=== PATIENT | female | born 1990 | race Caucasian/White ===

== ENCOUNTER 2020-11-19 16:40 | Inpatient (IN) | payer MEDICAID, SELFPAY ==
[~2020-11-19] VITALS: Ht 157.5 cm; Wt 77.1 kg
[2020-11-19] MEDS ORDERED: CARBOPROST 250 MCG/ML AMP IM PRN (18:25)
[2020-11-19] MEDS ORDERED: LACTATED RINGERS 1,000 ML IV SCH (18:25)
[2020-11-19] MEDS ORDERED: METHYLERGONOVINE 0.2 MG/ML AMP IM PRN (18:25)
[2020-11-19 19:00] LABS: BASOPHILS % (AUTO) 0.4 % (0.0-2.0); EOSINOPHILS % (AUTO) 0.1 % (0.0-4.0); HEMOGLOBIN 10.9 g/dL (12.0-16.0); LYMPHOCYTES # (AUTO) 1.3 K/uL (2.5-16.5); LYMPHOCYTES % (AUTO) 16.7 % (20.5-51.1); MEAN CORPUSCULAR HEMOGLOBIN 29 pg (27-31); MEAN CORPUSCULAR HGB CONC 33 g/dL (33-37); MEAN CORPUSCULAR VOLUME 86.6 fL (80-94); MONOCYTES # (AUTO) 0.3 K/uL (0.8-1.0); MONOCYTES % (AUTO) 3.5 % (1.7-9.3); NEUTROPHILS # (AUTO) 6.2 K/uL (1.8-7.7); NEUTROPHILS % (AUTO) 79.3 % (42.2-75.2); PLATELET COUNT (AUTO) 178 K/uL (140-450); RED BLOOD CELL COUNT(AUTO) 3.81 MIL/uL (4.20-5.40); RED CELL DISTRIBUTION WIDTH 14.9 % (11.6-13.7); WHITE BLOOD COUNT (AUTO) 7.8 K/uL (4.8-10.8)
[2020-11-19 19:31] LABS: ALBUMIN 2.7 g/dL (3.4-5.0); ANION GAP 20.7 (8-16); CREATININE 0.6 mg/dL (0.6-1.3); POTASSIUM 3.7 mmol/L (3.5-5.1); TOTAL BILIRUBIN 0.3 mg/dL (0.0-1.0)
[2020-11-19 20:00] LABS: APPEARANCE,URINE CLEAR (CLEAR); BILIRUBIN,URINE NEGATIVE (NEGATIVE); BLOOD, URINE NEGATIVE (NEGATIVE); COLOR,URINE YELLOW (YELLOW); LEUKOCYTE ESTERASE ,URINE NEGATIVE (NEGATIVE); NITRITE, URINE NEGATIVE (NEGATIVE); UGLUCOSE NEGATIVE (NEGATIVE)
[2020-11-19] MEDS ORDERED: MISOPROSTOL 25 MCG TAB VG SCH (20:10)
[2020-11-19] MEDS ORDERED: OXYTOCIN 20 UNITS in LACTATED RINGERS 1,000 ML IV SCH (20:10)
[2020-11-19] MEDS ORDERED: MORPHINE SULFATE 5 MG/ML VIAL IVP PRN (20:10)
[2020-11-19] MEDS ORDERED: OXYTOCIN 20 UNITS/LR PREMIX 1,000 ML IV ONE (20:42)
[2020-11-20] MEDS ORDERED: MORPHINE SULFATE 10 MG/ML VIAL ONE (01:53)
[2020-11-20] MEDS ORDERED: LIDOCAINE 1% 500 MG/50 ML VIAL ONE (02:29)
[2020-11-20] MEDS ORDERED: IBUPROFEN 800 MG TAB PO PRN (02:50)
[2020-11-20] MEDS ORDERED: METHYLERGONOVINE 0.2 MG/ML AMP IM PRN (02:50)
[2020-11-20] MEDS ORDERED: TEMAZEPAM 15 MG CAP PO PRN (02:50)
[2020-11-20] MEDS ORDERED: OXYTOCIN 10 UNITS/ML VIAL IM PRN (02:50)
[2020-11-20] MEDS ORDERED: METHYLERGONOVINE 0.2 MG TAB PO PRN (02:50)
[2020-11-20] MEDS ORDERED: BENZOCAINE/MENTHOL 20%-0.5% 60 GM CAN TP PRN (02:50)
[2020-11-20] MEDS ORDERED: oxyCODONE/APAP 5/325 MG 1 TAB TAB PO PRN ×2 (02:50)
[2020-11-20] MEDS ORDERED: AMMONIA AROMATIC 1 INHL INH ONE (04:10)
--- NOTE | 2020-11-20 08:36 | NUR ---
PATIENT HAS BEEN SCREENED AND CATEGORIZED LOW NUTRITION RISK. PATIENT WILL BE SEEN WITHIN 7 DAYS OF ADMISSION. 11/26/[address]
[2020-11-20] MEDS ORDERED: DOCUSATE SOD/SENNA 50/8.6 MG 1 TAB PO SCH (21:00)
[2020-11-21 06:31] LABS: HEMOGLOBIN 9.7 g/dL (12.0-16.0)
[2020-11-21] MEDS ORDERED: IBUP-2213 PO (09:24)
[2020-11-21] MEDS ORDERED: FERR325E14 PO (09:24)
== END 2020-11-21 13:25 | disposition home or self-care (01) | DRG 560 ==
LOC: UNDOADMOB 16:40 → MLD 16:40 → OBSVTOIN 18:24 → MFCC 11-20 04:40
PROVIDERS: ADMIT Obstetrics & Gynecology; ATTEND Obstetrics & Gynecology
PROC: 10907ZC Drainage of Amniotic Fluid, Therapeutic from Products of Conception, Via Natural or Artificial Opening (ICD-10-PCS; principal; 2020-11-20)
PROC: 0HQ9XZZ Repair Perineum Skin, External Approach (ICD-10-PCS; 2020-11-20)
PROC: 10D07Z6 Extraction of Products of Conception, Vacuum, Via Natural or Artificial Opening (ICD-10-PCS; 2020-11-20)
DX: O66.5 Attempted application of vacuum extractor and forceps (principal); O69.81X0 Labor and delivery complicated by cord around neck, without compression, not applicable or unspecified; O70.0 First degree perineal laceration during delivery; Z20.822 Contact with and (suspected) exposure to COVID-19; Z37.0 Single live birth; Z3A.40 40 weeks gestation of pregnancy
CPT/HCPCS: 36415; 80053; 81003; 85018; 85025; 86592; 86886; 86900; 86901; 96361; 96365; 96366; G0378; J2001; J2210; J2270; J2590; J7120